=== PATIENT | female | born 1990 | race Caucasian/White ===

== ENCOUNTER → 2016-11-17 | Outpatient (CLI) | payer OTHER ==
[~2016-11-17] MED LIST: ACET325T96 PO; CARB200T PO; CTP1X PO; GUAN1TAB8 PO; LURA40TA PO; MEDR150I INJ; TOPI100T34 PO
== END | disposition home or self-care (01) ==
LOC: C.PAPS 14:30
PROVIDERS: ATTEND Nurse Practitioner Family
DX: Z12.4 Encounter for screening for malignant neoplasm of cervix (principal)

== ENCOUNTER → 2016-11-17 | Outpatient (CLI) | payer OTHER ==
[2016-11-17 12:45] LABS: ALT/SGPT 41 U/L (12-78); AST/SGOT 17 U/L (15-37); BLOOD UREA NITROGEN 12 mg/dl (7-18); BUN/CREATININE RATIO 16.8 (10-20); CALCIUM 9.4 mg/dl (8.5-10.1); CARBON DIOXIDE 25 mmol/L (21-32); CHLORIDE 107 mmol/L (98-107); CREATININE 0.74 mg/dl (0.60-1.20); GLUCOSE 84 mg/dl (70-99); SODIUM 140 mmol/L (136-145)
[2016-11-17 12:48] LABS: ALB/GLOB RATIO 1.1 (0.9-2); ALKALINE PHOSPHATASE 94 U/L (45-117); CHOLESTEROL 187 mg/dl (0-200); CHOLESTEROL/HDL RATIO 4.1; HDL CHOLESTEROL 46 mg/dl; LDL CHOLESTEROL CALCULATED 110 mg/dl; TRIGLYCERIDES 154 mg/dl (0-150); VERY LOW DENSITY LIPOPROT CALC 31 mg/dl
[2016-11-18 22:56] LABS: CHLAMYDIA TRACH RNA*** NOT DETECTED (NOT DETECTED); GC (NEIS GONORRHOEAE)RNA** NOT DETECTED (NOT DETECTED)
--- NOTE | 2016-11-26 12:15 | CODING QUERY MEDICAL NECESSITY ---
SUPPORTING DIAGNOSIS NEEDED A supporting diagnosis is required for the test/procedure performed on this patient in order for us to be reimbursed by the patient's insurance. Please provide a supporting diagnosis for the following test/procedure listed below next to the test name along with your signature. *If there is no additional diagnosis for this patient that would support the following test/procedure please document that below next to the test/procedure. Test(s)/Procedure(s) that require a supporting diagnosis: * CHLAMYDIA AMPLIF. PROBE DIAGNOSIS: * NEISSERIA AMPLIF. PROBE DIAGNOSIS: * DOS: 11/17/16 Provider Signature: Date: Thank you Lesia Pickard Health Information Management Once completed, please kindly fax back to [phone] For questions please call [phone]
== END | disposition home or self-care (01) ==
LOC: C.LABPVFM 09:46
PROVIDERS: ATTEND Nurse Practitioner Family
DX: Z30.9 Encounter for contraceptive management, unspecified (principal); E78.5 Hyperlipidemia, unspecified; Z01.419 Encounter for gynecological examination (general) (routine) without abnormal findings; Z12.4 Encounter for screening for malignant neoplasm of cervix

== ENCOUNTER 2017-10-04 21:08 | Emergency (ER) | payer OTHER ==
[~2017-10-04 21:08] MED LIST changes: +ACET-1693 PO; -ACET325T96 PO
[2017-10-04 21:28] VITALS: TEMP 36.8; Ht 162.6 cm
[2017-10-04 22:13] LABS: BASO % 0.3 %; BASO ABS # 0.03 K/uL (0-0.2); EOS % 0.6 %; EOS ABS # 0.06 K/uL (0-0.5); HEMATOCRIT 40.9 % (37-47); HEMOGLOBIN 14.1 g/dL (12.0-16.0); IG# 0.01 K/uL (0.00-0.02); LYMPH % 29.6 %; LYMPH ABS # 2.85 K/uL (1.2-3.4); MEAN CELL VOLUME 87.6 fL (80-100); MEAN CORPUSCULAR HEMOGLOBIN 30.2 pg (25-34); MEAN CORPUSCULAR HGB CONC 34.5 g/dl (32-36); MEAN PLATELET VOLUME 9.4 fL (7.4-10.4); MONO % 8.1 %; MONO ABS # 0.78 K/uL (0.11-0.59); NEUT % 61.3 %; PLATELET COUNT 242 K/uL (130-400); RED CELL DISTRIBUTION WIDTH CV 13.1 % (11.5-14.5); WHITE BLOOD COUNT 9.63 K/uL (4.8-10.8)
[2017-10-04] MEDS ORDERED: NITROFURANTOIN MONOHYDRATE 100 MG CAP PO STA (22:15)
[2017-10-04] MEDS ORDERED: NITR-5 PO (22:19)
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
[2017-10-04 22:36] LABS: ALBUMIN 3.7 gm/dl (3.4-5.0); ALT/SGPT 33 U/L (12-78); AST/SGOT 15 U/L (15-37); BLOOD UREA NITROGEN 19 mg/dl (7-18); CARBON DIOXIDE 23 mmol/L (21-32); CREATININE 0.62 mg/dl (0.60-1.20); GLUCOSE 100 mg/dl (70-99); POTASSIUM 3.8 mmol/L (3.5-5.1); SODIUM 140 mmol/L (136-145)
[2017-10-04 22:46] LABS: ALKALINE PHOSPHATASE 73 U/L (45-117)
[2017-10-05] MEDS ORDERED: ATOR10TA82 PO (00:56)
[2017-10-05] MEDS ORDERED: LURA80TA PO (00:59)
[2017-10-05] MEDS ORDERED: CHOL100027 PO (00:59)
[2017-10-05] MEDS ORDERED: GUAN1TAB PO (00:59)
[2017-10-05] MEDS ORDERED: MEDR150I19 INJ (01:00)
[2017-10-05 08:29] VITALS: BP 139/84; PULSE 87; O2SAT 100
[2017-10-05] MEDS ORDERED: CARBAMAZEPINE 200 MG TAB PO ONE (09:00)
[2017-10-05] MEDS ORDERED: LURASIDONE HCL 40 MG TAB PO SCH (09:00)
[2017-10-05] MEDS ORDERED: CLONIDINE HCL 0.1 MG TAB PO SCH (09:00)
[2017-10-05] MEDS ORDERED: NITROFURANTOIN MONOHYDRATE 100 MG CAP PO SCH (09:00)
== END 2017-10-05 08:30 | disposition home or self-care (01) ==
LOC: EDBD 21:08 → C.EDA 21:12
DX: N30.01 Acute cystitis with hematuria (principal); F31.9 Bipolar disorder, unspecified; F90.9 Attention-deficit hyperactivity disorder, unspecified type; F43.10 Post-traumatic stress disorder, unspecified; G40.909 Epilepsy, unspecified, not intractable, without status epilepticus; Z79.899 Other long term (current) drug therapy